=== PATIENT | female | born 1980 | race Caucasian/White ===

== ENCOUNTER 2020-09-21 08:32 | Inpatient (IN) | payer BC, OTHER ==
[~2020-09-21] VITALS: Ht 172.7 cm; Wt 86.2 kg
[2020-09-21 09:49] LABS: HEMOGLOBIN 14.7 gm/dl (12.3-15.3); RED BLOOD COUNT 5.03 M/UL (4.00-5.10); WHITE BLOOD COUNT 25.6 K/UL (4.5-11.0)
[2020-09-21 11:59] LABS: BUN/CREATININE RATIO 12 (0-10)
[2020-09-21] MEDS ORDERED: METOPROLOL SUCC25 MG PO (16:42)
[2020-09-21] MEDS ORDERED: AMITRIPTYLINE H75 MG PO (16:42)
[2020-09-21] MEDS ORDERED: TRAMADOL HCL50 MG PO (16:42)
[2020-09-21] MEDS ORDERED: LEVOTHYROXINE75 MCG PO (16:43)
[2020-09-21] MEDS ORDERED: DULOXETINE HCL20 MG PO (16:43)
[2020-09-21] MEDS ORDERED: PRAMIPEXOLE0.125 MG PO (16:43)
[2020-09-21] MEDS ORDERED: SPIRONOLACTONE50 MG PO (16:44)
[2020-09-21] MEDS ORDERED: FUROSEMIDE20 MG PO (16:44)
[2020-09-21] MEDS ORDERED: VITAMIN B-121000 MC3 PO (16:46)
[2020-09-21] MEDS ORDERED: VITAMIN D 40400 UNIT PO (16:46)
[2020-09-22 05:10] LABS: HEMOGLOBIN 12.5 gm/dl (12.3-15.3); RED BLOOD COUNT 4.32 M/UL (4.00-5.10); WHITE BLOOD COUNT 12.9 K/UL (4.5-11.0)
[2020-09-22 05:35] LABS: BUN/CREATININE RATIO 15 (0-10)
[2020-09-23 05:00] LABS: HEMOGLOBIN 11.9 gm/dl (12.3-15.3); RED BLOOD COUNT 4.15 M/UL (4.00-5.10); WHITE BLOOD COUNT 16.1 K/UL (4.5-11.0)
[2020-09-23 05:23] LABS: BUN/CREATININE RATIO 19 (0-10)
[2020-09-24 11:56] LABS: HEMOGLOBIN 13.1 gm/dl (12.3-15.3); RED BLOOD COUNT 4.52 M/UL (4.00-5.10); WHITE BLOOD COUNT 19.1 K/UL (4.5-11.0)
[2020-09-24 12:21] LABS: BUN/CREATININE RATIO 21 (0-10)
[2020-09-26] MEDS ORDERED: PROAIR HFA8.5 GM INH (12:16)
[2020-09-26] MEDS ORDERED: DOXYCYCLINE HY100 M2 PO (12:16)
== END 2020-09-26 14:28 | disposition home or self-care (01) | DRG 871 ==
LOC: ER1 08:32 → CDU 13:20 → MED SURG 4 13:20
PROVIDERS: Physician Assistant; ADMIT Internal Medicine
DX: A41.9 Sepsis, unspecified organism (principal); J18.9 Pneumonia, unspecified organism; I10 Essential (primary) hypertension; E03.9 Hypothyroidism, unspecified; Z20.822 Contact with and (suspected) exposure to COVID-19; F17.210 Nicotine dependence, cigarettes, uncomplicated; D72.829 Elevated white blood cell count, unspecified; Z79.899 Other long term (current) drug therapy; Z88.1 Allergy status to other antibiotic agents; Z88.0 Allergy status to penicillin
CPT/HCPCS: 0240U; 36415; 36600; 71045; 80053; 81001; 82550; 82553; 82803; 83605; 83874; 84484; 84703; 85025; 85379; 86140; 87040; 93005; 96365; 96366; 96368; 96375; 96376; 99285; G0378; J0456; J0696; J1650; J2185; J2920; J2930; J7030; Q9967